=== PATIENT | female | born 1990 | race Two or more races ===

== ENCOUNTER 2020-08-09 05:12 | Day surgery (SDC) | payer OTHER ==
[2020-08-07 15:53] VITALS: BMI 24.3
[2020-08-09] MEDS ORDERED: TRIAMCINOLONE ACET 40MG/1ML VIAL ONE (11:18)
[2020-08-09] MEDS ORDERED: LIDOCAINE HCL 1%, 10 MG/ML (20ML VIAL) ONE (11:21)
[2020-08-09] MEDS ORDERED: BUPIVACAINE HCL 100 ML ONE (11:21)
[2020-08-09] MEDS ORDERED: MIDAZOLAM HCL 2 MG/2 ML SINGLE DOSE VIAL ONE (11:32)
[2020-08-09] MEDS ORDERED: DEXAMETHASONE SOD PHOSPHATE 4 MG/1 ML VIAL ONE (11:32)
[2020-08-09] MEDS ORDERED: PROPOFOL 20 ML ONE (11:32)
[2020-08-09] MEDS ORDERED: ONDANSETRON 4 MG/2 ML VIAL ONE ×2 (11:32→15:39)
[2020-08-09] MEDS ORDERED: ceFAZolin SODIUM 1 GM VIAL IVPB ONE (11:52)
[2020-08-09] MEDS ORDERED: ceFAZolin SODIUM 1 GM VIAL ONE ×2 (11:55)
[2020-08-09] MEDS ORDERED: LIDOCAINE 1% P/F 10 MG/ML VIAL INF ONE (12:37)
[2020-08-09] MEDS ORDERED: BUPIVACAINE HCL/PF 0.5% (5MG/ML) 10 ML VIAL IJ ONE (12:38)
[2020-08-09] MEDS ORDERED: TRIAMCINOLONE ACETONIDE 40 MG/ML 10 ML VIAL IJ ONE (12:39)
[2020-08-09] MEDS ORDERED: KETOROLAC TROMETHAMINE 30 MG/1 ML VIAL ONE (12:48)
[2020-08-09] MEDS ORDERED: oxyCODONE HCL 5 MG TABLET PO PRN (13:27)
[2020-08-09] MEDS ORDERED: ONDANSETRON 4 MG/2 ML VIAL IVPUSH PRN (13:27)
[2020-08-09] MEDS ORDERED: LACTATED RINGERS SOLUTION 1,000 ML IV SCH (13:30)
[2020-08-09] MEDS ORDERED: oxyCODONE HCL 5 MG TABLET ONE (15:14)
[2020-08-09 16:57] VITALS: BP 110/62; PULSE 73; TEMP 97.1
== END 2020-08-09 17:10 | disposition home or self-care (01) ==
LOC: JASU-SURG 05:12
PROVIDERS: ATTEND Surgery
PROC: 0JB60ZZ Excision of Chest Subcutaneous Tissue and Fascia, Open Approach (ICD-10-PCS; 2020-08-09)
PROC: 0JQ60ZZ Repair Chest Subcutaneous Tissue and Fascia, Open Approach (ICD-10-PCS; principal; 2020-08-09 11:00)
DX: C44.599 Other specified malignant neoplasm of skin of other part of trunk (principal)
CPT/HCPCS: 84703; 88305-TC; 88341-TC; 88342-TC; 94760